=== PATIENT | male | born 1965 | race Hispanic/Latino ===

== ENCOUNTER 2019-01-13 10:56 | Emergency (ER) | payer SELFPAY ==
[2019-01-13] MEDS ORDERED: CYCLOBENZAPRINE HCL 10 MG TABLET ONE (12:37)
== END 2019-01-13 12:42 | disposition home or self-care (01) ==
LOC: EDH 10:56
DX: S29.012A Strain of muscle and tendon of back wall of thorax, initial encounter (principal); X58.XXXA Exposure to other specified factors, initial encounter; Y93.89 Activity, other specified; Y92.89 Other specified places as the place of occurrence of the external cause; Y99.8 Other external cause status
CPT/HCPCS: 71046